=== PATIENT | male | born 2000 | race Asian ===

== ENCOUNTER 2024-06-30 19:37 | Emergency (ER) | payer MEDICAID ==
[~2024-06-30] VITALS: Ht 170.2 cm; Wt 49.9 kg
[2024-06-30 20:03] VITALS: BP_SYST 138; PULSE 95; RESP 20; TEMP 99; O2SAT 99
[2024-06-30] MEDS: MORPHINE 2 MG/ML INJ. SYRINGE IVP ONE (20:52)
[2024-06-30] MEDS ORDERED: IBUP-1969 PO (21:59)
[2024-06-30 22:06] VITALS: BP_SYST 132; PULSE 92; RESP 18; TEMP 98.9; O2SAT 99
== END 2024-06-30 22:06 | disposition home or self-care (01) ==
LOC: SED 19:37
DX: T20.17XA Burn of first degree of neck, initial encounter (principal); F12.90 Cannabis use, unspecified, uncomplicated; X08.8XXA Exposure to other specified smoke, fire and flames, initial encounter; Y93.89 Activity, other specified; Y92.89 Other specified places as the place of occurrence of the external cause; Y99.8 Other external cause status
CPT/HCPCS: 99282